=== PATIENT | male | born 1990 | race Caucasian/White ===

== ENCOUNTER 2017-07-29 19:11 | Emergency (ER) | payer SELFPAY ==
[~2017-07-29] VITALS: Ht 177.8 cm; Wt 90.0 kg
[2017-07-29 23:00] VITALS: BP 118/74
== END 2017-07-29 23:10 | disposition home or self-care (01) ==
LOC: ER 20:01
DX: F41.0 Panic disorder [episodic paroxysmal anxiety] (principal); R03.0 Elevated blood-pressure reading, without diagnosis of hypertension; F20.9 Schizophrenia, unspecified
CPT/HCPCS: 71045; 93005; 99284; Z7610

== ENCOUNTER 2017-10-17 23:49 | Emergency (ER) | payer SELFPAY ==
[~2017-10-17] VITALS: Ht 175.3 cm; Wt 100.0 kg
[2017-10-17 23:53] VITALS: BP 135/88
== END 2017-10-18 02:50 | disposition left against medical advice (07) ==
LOC: ER 23:49
DX: R10.9 Unspecified abdominal pain (principal); R51 Headache; Z53.21 Procedure and treatment not carried out due to patient leaving prior to being seen by health care provider

== ENCOUNTER 2017-11-08 02:17 | Emergency (ER) | payer SELFPAY ==
[~2017-11-08] VITALS: Ht 177.8 cm; Wt 83.0 kg
[2017-11-08 02:22] VITALS: BP 135/84
== END 2017-11-08 05:54 | disposition left against medical advice (07) ==
LOC: ER 02:17
DX: M79.622 Pain in left upper arm (principal)